=== PATIENT | female | born 1990 | race Caucasian/White ===

== ENCOUNTER 2021-02-01 19:16 | Emergency (ER) | payer OTHER, BC | END 2021-02-01 20:32 | disposition home or self-care (01) | LOC: CSHERS 19:16 → EDBD 19:16 → CSHERS 20:32 | DX: Z04.1 Encounter for examination and observation following transport accident (principal); Z3A.09 9 weeks gestation of pregnancy ==

== ENCOUNTER 2021-08-23 17:26 | Inpatient (IN) | payer BC ==
[2021-08-23 17:53] VITALS: BMI 29.4
[2021-08-23] MEDS ORDERED: Diphenoxylate HCl/Atropine Tablet PO PRN ×2 (18:20)
[2021-08-23] MEDS ORDERED: Ibuprofen 800 MG TAB PO PRN (18:20)
[2021-08-23] MEDS ORDERED: HYDROcodone/Acetaminophen 5/325 mg Tablet PO PRN ×2 (18:20)
[2021-08-23] MEDS ORDERED: hydrALAZINE 20 MG/ML VIAL SLOW IVP PRN (18:20)
[2021-08-23] MEDS ORDERED: Carboprost 250 MCG/ML AMP IM PRN (18:20)
[2021-08-23] MEDS ORDERED: Promethazine HCl 25 MG/ML VIAL IM PRN (18:20)
[2021-08-23] MEDS ORDERED: Acetaminophen 500 MG TAB PO PRN (18:20)
[2021-08-23] MEDS ORDERED: Misoprostol 200 MCG TAB PR PRN (18:20)
[2021-08-23] MEDS ORDERED: Lidocaine 1% (PF) 30 ML VIAL SC PRN (18:20)
[2021-08-23] MEDS ORDERED: Ondansetron PF 4 MG/2 ML Vial IVP PRN (18:20)
[2021-08-23] MEDS ORDERED: Methylergonovine 0.2 MG/ML VIAL IM PRN (18:20)
[2021-08-23] MEDS ORDERED: Butorphanol Tartrate 1 MG/ML VIAL SLOW IVP PRN (18:20)
[2021-08-23] MEDS ORDERED: ceFAZolin 2 GM/Dextrose 50 ML IVPB ONE (18:44)
[2021-08-23] MEDS: Lactated Ringer's 1,000 ML IV SCH (19:09)
[2021-08-23 19:28] LABS: Hemoglobin 13.6 g/dL (12.0-15.5); Mean Corpuscular HGB CONC 35.2 g/dL (32.0-36.0); Mean Corpuscular Volume 93.7 fl (81.6-98.3); Mean Platelet Volume 11.3 fl (7.4-10.4); Platelet Count 192 10x3/uL (150-450); RBC Distribution Width 12.5 % (11.5-14.5); Red Blood Cell (RBC) Count 4.12 10x6/uL (3.90-5.03); White Blood Cell (WBC) Count 13.3 10x3/uL (3.5-10.5)
[2021-08-23 20:00] LABS: Hep B Surf Ag Non-Reactive S/CO (NonReactive)
[2021-08-23 20:01] LABS: Syphilis Antibody Nonreactive (Nonreactive); Syphilis Antibody Index 0.04 S/CO (<1.00 Non-Reactive)
[2021-08-23 20:06] LABS: HBSAg Index 0.22 S/CO (0-0.99)
[2021-08-23 22:38] LABS: SARS-CoV-2 NAA Rapid Test Not Detected (NotDetected)
[2021-08-24] MEDS: CEFAZOLIN 1 GM in Sodium Chloride 0.9% 100 ML IVPB SCH ×2 (03:11→08:17)
[2021-08-24] MEDS ORDERED: Lidocaine 1% (PF) 30 ML VIAL ONE (03:43)
[2021-08-24] MEDS: NS w/ Oxytocin 30 units 500 ML IV SCH ×2 (06:15→07:30)
[2021-08-24] MEDS ORDERED: Misoprostol 200 MCG TAB VAG PRN (06:40)
[2021-08-24] MEDS ORDERED: Benzocaine-Menthol 82.5 ML CAN TOP PRN (06:40)
[2021-08-24] MEDS ORDERED: Lanolin Ointment 7 GM TUBE TOP PRN (06:40)
[2021-08-24] MEDS ORDERED: hydrALAZINE 20 MG/ML VIAL SLOW IVP PRN (06:40)
[2021-08-24] MEDS ORDERED: Ondansetron PF 4 MG/2 ML Vial IVP PRN (06:40)
[2021-08-24] MEDS ORDERED: Boostrix 0.5 ML (Tdap) VIAL IM ONE (06:40)
[2021-08-24] MEDS ORDERED: diphenhydrAMINE 25 MG CAP PO PRN (06:40)
[2021-08-24] MEDS ORDERED: Milk Of Magnesia 30 ML UDCUP PO PRN (06:40)
[2021-08-24] MEDS ORDERED: Bisacodyl 10 MG SUPP PR PRN (06:40)
[2021-08-24] MEDS ORDERED: Preparation H Ointment 28 GM TUBE PR PRN (06:40)
[2021-08-24] MEDS ORDERED: HYDROcodone/Acetaminophen 5/325 mg Tablet PO PRN ×2 (06:40)
[2021-08-24] MEDS ORDERED: Zolpidem Tartrate 5 MG TAB PO PRN (06:40)
[2021-08-24] MEDS ORDERED: NS w/ Oxytocin 30 units 500 ML IV SCH (06:45)
[2021-08-24] MEDS: Lactated Ringer's 1,000 ML IV SCH (08:17)
[2021-08-24] MEDS: Ferrous Sulfate 325 MG TAB PO SCH (09:40)
[2021-08-24] MEDS: Docusate 100 MG CAP PO SCH ×2 (10:14→21:59)
[2021-08-24] MEDS: Prenatal Vitamin 1 TAB PO SCH (10:14)
[2021-08-24] MEDS: Ibuprofen 800 MG TAB PO SCH ×2 (14:18→21:59)
[2021-08-25] MEDS: Ferrous Sulfate 325 MG TAB PO SCH (07:38)
[2021-08-25] MEDS: Ibuprofen 800 MG TAB PO SCH (08:17)
[2021-08-25] MEDS: Prenatal Vitamin 1 TAB PO SCH (08:17)
[2021-08-25] MEDS: Docusate 100 MG CAP PO SCH (08:17)
[2021-08-25 08:20] VITALS: BP 110/62; TEMP 98
== END 2021-08-25 12:47 | disposition home or self-care (01) | DRG 807 ==
LOC: CSHLD/OP 17:26 → CSHLD 20:03 → CSHPP 08-24 08:45
PROVIDERS: ADMIT Obstetrics & Gynecology; ATTEND Obstetrics & Gynecology
PROC: 10E0XZZ Delivery of Products of Conception, External Approach (ICD-10-PCS; principal; 2021-08-24)
PROC: 10907ZC Drainage of Amniotic Fluid, Therapeutic from Products of Conception, Via Natural or Artificial Opening (ICD-10-PCS; 2021-08-24)
PROC: 0KQM0ZZ Repair Perineum Muscle, Open Approach (ICD-10-PCS; 2021-08-24)
PROC: 3E0234Z Introduction of Serum, Toxoid and Vaccine into Muscle, Percutaneous Approach (ICD-10-PCS; 2021-08-24)
DX: O99.824 Streptococcus B carrier state complicating childbirth (principal); Z37.0 Single live birth; Z3A.38 38 weeks gestation of pregnancy; Z88.0 Allergy status to penicillin; Z88.1 Allergy status to other antibiotic agents; Z67.41 Type O blood, Rh negative; O26.893 Other specified pregnancy related conditions, third trimester; O70.1 Second degree perineal laceration during delivery
CPT/HCPCS: 36415; 85027; 85461; 86780; 86850; 86870; 86900; 86901; 87340; 90384; 96372; 99285; J0690; J2590; J3490; U0002